=== PATIENT | male | born 1970 | race Caucasian/White ===

== ENCOUNTER 2017-02-03 09:28 | Inpatient (IN) | payer SELFPAY ==
--- NOTE | 2017-02-03 09:44 | CPEKG ---
Heart Rate: 100 RR Interval: 600 P-R Interval: 176 QRSD Interval: 98 QT Interval: 344 QTC Interval: 444 P [place]: 74 QRS [place]: 226 T Wave [place]: 241 EKG Severity - ABNORMAL ECG - EKG Impression: SINUS TACHYCARDIA EKG Impression: INTERPOLATED VENTRICULAR PREMATURE COMPLEX EKG Impression: RIGHT AXIS DEVIATION EKG Impression: PROBABLE INFERIOR INFARCT, AGE INDETERMINATE EKG Impression: CONSIDER ANTERIOR INFARCT EKG Impression: REPOL ABNRM SUGGESTS ISCHEMIA, DIFFUSE LEADS Electronically Signed By: Radha Prince 03-Feb-2017 13:13:15
[2017-02-03] MEDS ORDERED: NOREPINEPHRINE BITARTRATE 4 MG in D5W 500 ML IV ONE (09:58)
[2017-02-03] MEDS ORDERED: CEFEPIME HCL 2 GM in D5W 100 ML IV ONE (09:58)
[2017-02-03] MEDS ORDERED: NS 1,000 ML BAG *FOR SEPSIS ORDER SET ONLY IV ONE (09:58)
[2017-02-03] MEDS ORDERED: EPINEPHrine 1 MG/10 ML SYR IVP ONE ×2 (10:00→19:50)
[2017-02-03] MEDS ORDERED: SODIUM BICARBONATE 50 MEQ/50 ML SYR ONE (10:00)
[2017-02-03] MEDS ORDERED: DOPamine/DEXTROSE/250 ML BAG IV ONE (10:00)
[2017-02-03 10:07] LABS: BASE EXCESS -24.9 mEq/L (-2.5-2.5); BICARBONATE 9 mEq/L (22-26); MEASURED OXYGEN SATURATION 87 % (92-95); PCO2 63 mmHg (34-38); PO2 106 mmHg (65-75); TCO2 11 mEq/L (23-27)
[2017-02-03 10:10] LABS: END TIDAL CO2 39; O2 CONCENTRATIION 100 % (0-100); P/F RATIO 106 RATIO; PATIENT RATE 0; PRESSURE SUPPORT 7; SIMV YES
[2017-02-03 10:11] LABS: INR 1.49 (0.83-1.16)
[2017-02-03 10:12] LABS: APTT 40.5 SEC (23.0-38.0)
[2017-02-03 10:13] LABS: % IMMATURE GRANULYOCYTES 0.5 % (0.0-1.1); ABSOLUTE IMMATURE GRANULOCYTES 0.01 10^3/uL (0.00-0.10); ABSOLUTE NRBC COUNT 0.03 10^3/uL (0-0.01); ADD DIFF? NO; ADD MORPH? YES; ADD SCAN? YES; ATYPICAL LYMPHOCYTE FLAG 80 (0-99); FRAGMENT RBC FLAG 0 (0-99); HEMATOCRIT 35.3 % (40.0-51.0); HEMOGLOBIN 11.4 g/dL (13.7-17.5); LIPEMIA HEMOLYSIS FLAG 80 (0-99); MEAN CELL HEMOGLOBIN 36.4 pg (27.9-34.1); MEAN CELL HEMOGLOBIN CONCENTR. 32.3 g/dL (32.4-36.7); MEAN CELL VOLUME 112.8 fL (81.5-99.8); MEAN PLATELET VOLUME 10.1 fL (8.7-11.7); PLATELET CLUMPS FLAG 0 (0-99); PLATELET COUNT 138 10^3/uL (150-400); RED BLOOD CELL COUNT 3.13 10^6/uL (4.40-6.38)
[2017-02-03 10:14] LABS: LEFT SHIFT FLG 300 (0-99); NRBC-AUTO% 1.5 % (0.0-0.2)
[2017-02-03] MEDS ORDERED: PROPOFOL 200 MG/20 ML VIAL ONE (10:27)
--- NOTE | 2017-02-03 10:33 | EDPHY ---
H & P Time Seen by Provider: 02/03/17 09:48 HPI/ROS: CHIEF COMPLAINT: Asystole Limitations: unresponsive, hx per paramedics and a friend who was with the pt HISTORY OF PRESENT ILLNESS: 46-year-old homeless alcoholic presents with an asystole. This morning he was in the park, walked to the bathroom and then collapsed. Bystander CPR. On lens generator arrival he was in asystole. CPR was initiated and IV established. Narcan given without change. Pre-hospital blood sugar low, not given dextrose in the field yet. In route to the hospital , he regained pulses. Total down time approximately 35 minutes. No recent illness per the pt's friend, but has ongoing excessive and daily alcohol use. He took a muscle relaxer given to him by a friend yesterday ( unusual for him). No other drug use (per friend). REVIEW OF SYSTEMS: Unable to determine Past Medical/Surgical History: Alcoholism Social History: Homeless Smoking Status: Current every day smoker Physical Exam: General Appearance: Pale, unresponsive Eyes: eyes glazed, pupils fixed and dilated ENT, Mouth: Mucous membranes moist Neck: Normal inspection the anteriorly Respiratory: no respiratory effort Cardiovascular: Regular tachycardia Gastrointestinal: Abdomen is soft and nondistended Neurological: unresponsive to painful stimuli, flaccid Skin: pale Extremities: normal inspection Psychiatric: unable to determine Constitutional: Initial Vital Signs Temperature (C) 36.7 C 02/03/17 09:46 Allergies/Adverse Reactions: No Known Allergies Allergy (Unverified 08/27/13 22:23) Home Medications: Medication Instructions Recorded NK [No Known Home Meds] 09/22/15 Medical Decision Making - Diagnostics EKG Interpretation: EKG reveals sinus rhythm, diffuse T-wave inversions, T-wave elevation in V3 and AVR. Procedures: Procedure: RSI Intubation Indication for the procedure was respiratory arrest. The patient was preoxygenated with 100% oxygen by face mask. The patient was not sedated or paralyzed because he was unresponsive and flaccid. The patient was orally endotracheally intubated under direct glidescope visualization with a 7.5 ETT. Tracheal intubation was confirmed with misting on the tube; equal breath sounds bilaterally immediately after intubation; appropriate color change with [place] End Tidal CO2 detector; and appropriate capnography waveform. Oxygen saturation after intubation is 96% . Chest X-ray shows ETT in good position. The procedure was performed by myself. Procedure: Ultrasound guidance. Using the linear probe covered in a sterile sheath, a short axis of the vein was obtained. The vein was completely compressible and was identified as separate from the adjacent non-compressible arterial structure. Under real- time guidance, the introducer needle was observed up to the vein, and then punctured it. Indication: sepsis. Risks, benefits, alternatives not discussed with the patient because he was unresponsive. A timeout was observed. Full maximal sterile barrier technique was used including cap, gown, sterile gloves, large sheet, hand washing and chlorhexidine prep. The area was anesthetized with 1% lidocaine. A 7 Upper Sor[place] triple lumen was placed in the right internal jugular vein using standard Seldinger technique. There were no complications. Blood return low pressure, dark blood. Patient tolerated procedure well. CXR results: Appropriate line placement, and no pneumothorax. X-ray was interpreted by myself. Radiologist interpretation is pending. The procedure was performed by myself. ED Course/Re-evaluation: This patient presents after a witnessed cardiac arrest, now unresponsive, in a narrow complex rhythm with a pulse. He was orally intubated by la on arrival. Unable to obtain BP. 2 IVs were established. D50 1 amp IV given and Narcan 2 mg IV given without change. Dopamine initiated. He remained unresponsive, without a gag reflex. Cardiac alert was paged because of the abnormal EKG. Although the EKG did not clearly meet criteria for STEMI, he had diffuse ST/T changes. Dr. Jose Goodrich saw the patient in the emergency department. Stat echocardiogram revealed good wall motion. See nursing documentation for the resuscitation record. The patient lost pulses during his resuscitation a couple of times and CPR was resumed. He responded well to epinephrine 1 mg IV and regained blood pressures after the boluses of epinephrine. Dopamine IV initiated. Levophed was ordered, but he did not require Levophed because his blood pressure remained adequate after dopamine and the 2 IV boluses of epinephrine. Stat chest x-ray revealed a large right-sided infiltrate. At this time septic shock was identified, blood cultures drawn and he was given cefepime and Levaquin IV. A left radial arterial line was placed by Dr. Goodrich. A right internal jugular central line was placed by me. Chest x-ray after the central line placement revealed no evidence of pneumothorax and the central line in good positioning. IV fluids given per the sepsis protocol at 30 milliliters/kilogram. A Jeronimo was placed and revealed field only 10 mL of urine. Further IV fluids were given. The hospitalist service was consulted for admission. In route to the ICU, he was sent over to CT for CT scan of his head and cervical spine since he had a fall and he remains unresponsive. CT scans unremarkable. He remained flaccid and unresponsive throughout his emergency department stay, with fixed and dilated pupils. I spoke with his friend (who calls himself a brother) and informed him of the critical nature of his brothers disease. This patient utilized 60 minutes of critical care time exclusive of unbundled procedures. Differential Diagnosis: includes though not limited to acute coronary syndrome, ICH, SAH, septic shock, dysrhythmia, primary respiratory failure, hemorrhagic/neurogenic shock. - Data Points Laboratory Results: Laboratory Results 02/03/17 09:40 02/03/17 09:40 Microbiology Results: MICROBIOLOGY 02/03/17 10:23 Blood Blood Culture - Preliminary Gram Positive Cocci Chains 02/03/17 10:23 Blood Blood Panel (PCR) - Final Streptococcus Pneumoniae Medications Given: Discontinued Medications Epinephrine HCl 1 mg/ Dextrose 250 mls @ 0 mls/hr IV EDNOW ONE; Titrate PRN Reason: Protocol Stop: 02/03/17 10:01 Last Admin: 02/03/17 16:19 Dose: Not Given Cefepime HCl 2 gm/ Dextrose 100 mls @ 200 mls/hr IV EDNOW ONE PRN Reason: Protocol Stop: 02/03/17 10:27 Last Admin: 02/03/17 16:18 Dose: Not Given Dopamine HCl/Dextrose (Dopamine 1600 Mcg/Ml (Premix)) 250 mls @ 0 mls/hr IV EDNOW ONE; Titrate PRN Reason: Protocol Stop: 02/03/17 09:59 Last Admin: 02/03/17 16:19 Dose: Not Given Levofloxacin/Dextrose (Levaquin 750 Mg (Premix)) 150 mls @ 100 mls/hr IV EDNOW ONE PRN Reason: Protocol Stop: 02/03/17 11:27 Last Admin: 02/03/17 10:55 Dose: 150 mls Norepinephrine 4 mg/ Dextrose 504 mls @ 0 mls/hr IV EDNOW ONE; Titrate PRN Reason: Protocol Stop: 02/03/17 09:59 Last Admin: 02/03/17 13:07 Dose: 504 mls Azithromycin 500 mg/ Dextrose 255 mls @ 255 mls/hr IV DAILY DIAN PRN Reason: Protocol Stop: 03/06/17 08:59 Last Admin: 02/04/17 10:43 Dose: 255 mls Albumin Human (Alburx 5) 500 mls @ 0 mls/hr IV ONCE ONE PRN Reason: As Directed Stop: 02/03/17 19:45 Last Admin: 02/03/17 20:07 Dose: 500 mls Vancomycin/Sodium Chloride (Vancomycin 1 Gm (Premix)) 250 mls @ 250 mls/hr IV Q12H DIAN PRN Reason: Protocol Stop: 03/05/17 22:29 Last Admin: 02/03/17 22:13 Dose: 250 mls Calcium Gluconate 2 gm/ Sodium (Chloride) 70 mls @ 140 mls/hr IV ONCE ONE Stop: 02/04/17 09:36 Last Admin: 02/04/17 09:29 Dose: 70 mls Metoprolol Tartrate (Lopressor Injection) 5 mg IVP ONCE ONE Stop: 02/03/17 18:41 Last Admin: 02/03/17 19:29 Dose: 5 mg Sodium Bicarbonate (Sodium Bicarbonate) 50 meq IVP ONCE ONE Stop: 02/03/17 20:31 Last Admin: 02/03/17 20:30 Dose: 50 meq Sodium Bicarbonate (Sodium Bicarbonate) 50 meq IVP ONCE ONE Stop: 02/04/17 09:11 Last Admin: 02/04/17 10:42 Dose: 50 meq Sodium Chloride (Ns *For Sepsis Order Set Only*) 2,177 ml 30 ml/kg (2177 ml) IV ONCE ONE Stop: 02/03/17 09:59 Last Admin: 02/03/17 16:19 Dose: Not Given Departure - Departure Disposition: [facility] Acute Clinical Impression: Septic shock Respiratory failure Qualifiers: Chronicity: acute Respiratory failure complication: hypoxia Qualified Code(s): J96.01 - Acute respiratory failure with hypoxia Condition: Critical
[2017-02-03 10:37] LABS: ANION GAP 25 mEq/L (8-16); BILIRUBIN,TOTAL 2.1 mg/dL (0.1-1.4); CALCIUM 7.9 mg/dL (8.5-10.4); CARBON DIOXIDE 10 mEq/l (22-31); CHLORIDE 97 mEq/L (97-110); CREATININE 1.8 mg/dL (0.7-1.3); GLOMERULAR FILTRATION RATE 41; GLUCOSE 175 mg/dL (70-100); POTASSIUM 4.1 mEq/L (3.5-5.2); SODIUM 132 mEq/L (134-144)
[2017-02-03 10:56] LABS: SCAN POSITIVE
[2017-02-03 11:00] LABS: BILIRUBIN-CONJUGATED 1.2 mg/dL (0.0-0.5); BILIRUBIN-UNCONJUGATED 0.9 mg/dL (0.0-1.1)
[2017-02-03 11:08] LABS: PLATELET ESTIMATE DECREASED (ADEQ)
[2017-02-03 11:30] LABS: PLATELET ESTIMATE DECREASED (ADEQ)
[2017-02-03 11:53] LABS: LACGHOST ORDER
[2017-02-03 11:55] LABS: COLOR AMBER; LEUKOCYTE ESTERASE,URINE NEGATIVE (NEGATIVE); NITRITE,URINE NEGATIVE (NEGATIVE)
[2017-02-03 12:04] LABS: BACTERIA TRACE /hpf (NONE SEEN); MUCUS TRACE /lpf (NONE-1+); RBC,URINE 50-182 /hpf (0-3); YEAST PRESENT /hpf (NONE SEEN)
[2017-02-03 12:45] LABS: BASE EXCESS -8.5 mEq/L (-2.5-2.5); BICARBONATE 20 mEq/L (22-26); MEASURED OXYGEN SATURATION 84 % (92-95); PCO2 56 mmHg (34-38); PO2 68 mmHg (65-75); TCO2 21 mEq/L (23-27)
[2017-02-03 12:47] LABS: END TIDAL CO2 47; O2 CONCENTRATIION 90 % (0-100); P/F RATIO 76 RATIO; SIMV YES
[2017-02-03 12:48] LABS: PATIENT RATE 26; PRESSURE SUPPORT 7
[2017-02-03 12:51] LABS: MIXED VENOUS O2 SATURATION 59 % (65-75)
[2017-02-03] MEDS: NS 1,000 ML IV SCH ×2 (13:07→19:29)
--- NOTE | 2017-02-03 13:26 | CPEKG ---
Heart Rate: 132 RR Interval: 455 P-R Interval: 140 QRSD Interval: 88 QT Interval: 308 QTC Interval: 457 P [place]: 69 QRS [place]: 21 T Wave [place]: -15 EKG Severity - BORDERLINE ECG - EKG Impression: SINUS TACHYCARDIA EKG Impression: PROBABLE LEFT ATRIAL ABNORMALITY EKG Impression: BORDERLINE T ABNORMALITIES, INFERIOR LEADS EKG Impression: COMPARED WITH January, REPOL ABNORMALITIES RESOLVED Electronically Signed By: Pastora Gabriel 03-Feb-2017 15:23:34
[2017-02-03 14:25] LABS: BASE EXCESS -7.5 mEq/L (-2.5-2.5); BICARBONATE 18 mEq/L (22-26); MEASURED OXYGEN SATURATION 89 % (92-95); PCO2 40 mmHg (34-38); PO2 69 mmHg (65-75); TCO2 20 mEq/L (23-27)
[2017-02-03 14:45] LABS: MIXED VENOUS O2 SATURATION 64 % (65-75)
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
[2017-02-03] MEDS: HEPARIN 5,000 UNIT/0.5 ML SYR SC SCH ×2 (15:08→22:13)
[2017-02-03] MEDS: ACETAMINOPHEN 650 MG/20.3 ML UDCUP PO PRN ×2 (15:08→22:19)
[2017-02-03 15:14] LABS: TROPONIN I 0.099 ng/mL (0-0.034)
--- NOTE | 2017-02-03 15:38 | ECHO ---
[id number] + + [address] : : [facility] [address] : : [phone] + + Adult Echocardiographic Report + + :Name: MARY DUFF Study Date: 02/03/2017 10:49 AM : : Hospital Admission Number: [id number] : :: 1970 Gender: Male : :Age: 46 yrs Race: WH,White : :Reason For Study: Eval LV Fx : :History: Post Cardiac Arrest : + + Left Ventricle The left ventricle is normal in size and function. The left ventricular ejection fraction is normal. The left ventricular wall motion is normal. Right Ventricle The right ventricle is mildly dilated. Mitral Valve There is no mitral regurgitation noted. Tricuspid Valve No tricuspid regurgitation. Aortic Valve The aortic valve opens well. Pericardium/Pleural There is no pericardial effusion. Conclusion This is a limited echo post cardiac arrest to evaluate for cardiac activity. The left ventricle is normal in size and function. The left ventricular wall motion is normal. The right ventricle is mildly dilated. The aortic valve opens well. There is no pericardial effusion. Final Reading Physician: Franco Varner signed on 02/03/2017 03:37 PM Ordering Physician: Milton Michel Performed By: Lawson Barney, MARGARITOCS
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
[2017-02-03 16:14] LABS: MIXED VENOUS O2 SATURATION 75 % (65-75)
[2017-02-03 16:30] LABS: PHENCYCLIDINE URINE BCH < 6 ng/ml (NEGATIVE); PHENCYCLIDINE URINE BCH NEGATIVE (NEGATIVE); TETRAHYDROCANNABINOL URINE 44 ng/mL (NEGATIVE); TETRAHYDROCANNABINOL URINE NEGATIVE (NEGATIVE)
[2017-02-03 17:03] LABS: ETHANOL URINE < 10 (NEGATIVE); ETHANOL URINE NEGATIVE (NEGATIVE)
[2017-02-03] MEDS: INSULIN REGULAR HUMAN 100 UNIT/ML SC SCH ×2 (17:09→23:14)
[2017-02-03] MEDS ORDERED: METOPROLOL TARTRATE 5 MG/5 ML INJ IVP ONE (18:40)
[2017-02-03] MEDS ORDERED: ALBUMIN 5% 500 ML IV ONE (19:44)
--- NOTE | 2017-02-03 19:56 | GCON ---
[f rep st] CONSULTATION PULMONARY CRITICAL CARE CONSULTATION. DATE OF CONSULTATION: 02/03/2017 REASON FOR CONSULTATION: On hospital arrest, acute respiratory failure, pneumonia, possible anoxic brain injury, multi organ failure. HISTORY: The patient is a chronic alcoholic, drinking approximately 1/5 of hard liquor per day. His recent history is somewhat unclear. He lives out of a trailer with a friend, uses the bathrooms in [facility]. He was there today when he apparently collapsed and was found down. Bystanders initiated CPR. Paramedics arrived and found him to be asystolic. Resuscitation was continued with return of spontaneous circulation. In the emergency room, he arrested and required repeat CPR, again with return of spontaneous circulation. Chest x-ray showed a dense right-sided infiltrate. CT scan of the head and cervical spine: CT scans were negative for acute findings. EKG showed a sinus tachycardia without obvious acute changes. Cardiac echo showed the left ventricular function to be normal. No wall motion abnormalities were found. The right ventricle was mildly dilated. Valvular function appeared normal. There was no pericardial effusion. The patient was moved to the intensive care unit on the ventilator. He is unresponsive with myoclonic jerking activity. He is tachycardic and hypotensive, requiring pressor therapy. He has been febrile. PAST MEDICAL HISTORY: Largely unknown. He is a chronic alcoholic as noted above. He has no known drug allergies in the past, when here. He was apparently taking no medications. He has had pneumonia in the past, alcohol withdrawal issues, etc. All charts reveal previous normal cardiac catheterization and herniorrhaphy in the past, etc. SOCIAL HISTORY: He is homeless, lives out of his trailer, and has a friend who lives with him. He does smoke cigarettes. Does not use drugs. He drinks alcohol daily, at least a pint. Per his friend, he apparently has anxiety and bizarre behavior at times. PHYSICAL EXAMINATION: GENERAL: Reveals a gentleman who is sedated, on the ventilator, with intermittent myoclonic jerking activity that involves his upper extremities, eyes open, etc. Current blood pressure is 110/70, on low- dose Levophed. Heart rate is 125 with sinus rhythm on the monitor. Respiratory rate is 28, set on the ventilator. He is on 90% FiO2 with saturations of 100%. CVP is 6. HEENT: Endotracheal tube and NG tubes are in place. The sclera are icteric. Eyes are deviated upwards into the left. Pupils are approximately 3 mm and fixed. There may be a minor ecchymoses lateral to the right eye. There are no other signs of head trauma. CHEST: Reveals decreased breath sounds, coarse bilaterally. Rales are present on the right. There are no secretions currently. Bronchial changes are present on the right. HEART: Tachycardic. A summation gallop could not be excluded. ABDOMEN: Quiet, mildly distended. Tenderness cannot be assessed. EXTREMITIES : Unremarkable for edema, cords, or tenderness. NEUROLOGIC: Remarkable for unresponsiveness. He does not respond to noxious stimuli. Eyes open with myoclonic activity. A Jeronimo catheter is in place with initially some yellow urine output. DATABASE: Chest x-ray shows dense right-sided infiltrates. The central line was deep and has been withdrawn appropriately. A CT scan of the head and cervical spine was negative. LABORATORY: Arterial blood gas shows a pH of 7.28, pCO2 of 40 and pO2 of 69. Base excess is -7.5. Lactate is 2.9. The latest MVO2 is 75. White blood cell count is 2000, hematocrit 30. Platelets are 138,000. PT is 18, PTT 40. Sodium is 129, potassium 4.4, serum bicarbonate is 18, BUN is 32 with a creatinine of 2.0. Glucose is 283, bilirubin 2.1. Troponin is approximately 0.1. Tox screen was negative. Influenza PCR was negative. Urinalysis was positive for red blood cells, protein and blood. No white cells were present. Urine Legionella and strep antigens are pending. Sputum culture is pending. ASSESSMENT: 1. Status post out of hospital arrest with prolonged down time and several episodes of asystole requiring cardiopulmonary resuscitation with eventual return of spontaneous circulation. He is hypotensive now, but improving. Exact etiology for his arrest is unknown. There is no history of heart disease , and previous catheterization was unremarkable. Pneumonia/sepsis and primary respiratory failure could have led to his arrest. An initial arrhythmia degenerating to asystole cannot be excluded. Anoxic brain injury appears to be present as he remains comatose with significant myoclonic jerking activity. Initial CT scan of the head was negative. Supportive care will be maintained; however, prognosis is quite guarded. 2. Possible severe anoxic brain injury along with hypoperfusion injury to other organs including kidneys, liver, etc. Extent of these problems will be determined over the next 12-24 hours. 3. Right-sided pneumonia. Possibly secondary to severe aspiration at the time of his arrest versus an antecedent, community acquired pneumonia and/or aspiration event. He is being broadly covered with antibiotics. 4. History of tobacco abuse, possible chronic obstructive pulmonary disease. 5. History of heavy alcohol abuse. At risk for withdrawal; however, this will be difficult to assess in his current situation. Ativan will be given. 6. Tachycardia secondary to the arrest and associated effects. 7. Temperatures, possibly central, possibly secondary to pneumonia and/or tissue ischemia elsewhere. 8. Leukopenia and anemia secondary to chronic alcoholism versus effects of his arrest. He does have a significant shift to the left. 9. Hyponatremia. 10. At risk for acute renal failure. PLAN AND RECOMMENDATIONS: The patient will be supported in the intensive care unit on the ventilator. Intravenous fluids will be given. Neurologic status will be followed. Antibiotics will be continued. Appropriate sedation and pain control will be maintained. Pressor therapy will be continued. Subcu heparin will be given for DVT prophylaxis and famotidine for GI prophylaxis. Norepinephrine will be used to keep mean arterial pressure at 65 or greater. Dopamine will be stopped. Further plans and recommendations will be made based on his progress over the next 12-24 hours. Over 1 hour of critical care time spent directly with the patient. /[id number]/MODL [email or web address]
[2017-02-03] MEDS: FAMOTIDINE 20 MG/NACL 50 ML IV SCH (20:07)
--- NOTE | 2017-02-03 20:11 | PDINTPN ---
Plant Anatomist Progress Note Assessment/Plan: Assessment: Course 0 note: Patient was given metoprolol, 5 mg by myself intravenously for it rates of approximately 130 and adequate blood pressures. Within approximately 15 minutes heart rate slowly dropped to the 70s and and blood pressure dropped as well. He had no discernible blood pressure by art line. CPR was initiated with compressions. He was given 3 rounds of epinephrine, 1 amp of bicarb, and restarted on dopamine. Levophed was increased. A epi drip was hanging but was not needed. He had return of tachycardia at approximately 120 and return of blood pressure and pulse. Blood pressure was 180/100 post resuscitation. Compressions were given over only the about 3 minutes. The patient saturations following the rest were 100%. Repeat ABG and laboratory values are pending. He remains on dopamine and Levophed at this time. Prognosis remains extremely guarded. Plan: Aggressive supportive care, fluids, pressors and ventilatory support will be maintained. Current medications/antibiotics will be continued. Objective: Vital Signs Temp Pulse Resp BP Pulse Ox 39.0 C H 126 H 28 H 118/74 100 02/03/17 19:00 02/03/17 19:00 02/03/17 19:00 02/03/17 19:00 02/03/17 19:00 02/02/17 02/03/17 02/04/17 05:59 05:59 05:59 Intake Total 4828 Output Total 1415 Balance 3413 PT 18.0 SEC (12.0-15.0) H 02/03/17 09:40 INR 1.49 (0.83-1.16) H 02/03/17 09:40 ICD10 Worksheet Patient Problems: Problems Problem Status Onset Septic shock Acute
[2017-02-03 20:12] LABS: BASE EXCESS -15.5 mEq/L (-2.5-2.5); BICARBONATE 16 mEq/L (22-26); MEASURED OXYGEN SATURATION 83 % (92-95); PCO2 66 mmHg (34-38); PO2 73 mmHg (65-75); TCO2 18 mEq/L (23-27)
[2017-02-03 20:17] LABS: HEMATOCRIT 35.3 % (40.0-51.0); HEMOGLOBIN 11.5 g/dL (13.7-17.5); MEAN CELL HEMOGLOBIN 36.3 pg (27.9-34.1); MEAN CELL HEMOGLOBIN CONCENTR. 32.6 g/dL (32.4-36.7); MEAN CELL VOLUME 111.4 fL (81.5-99.8); RED BLOOD CELL COUNT 3.17 10^6/uL (4.40-6.38); RED CELL DISTRIBUTION WIDTH 13.1 % (11.5-15.2)
[2017-02-03] MEDS ORDERED: SODIUM BICARBONATE 50 MEQ/50 ML SYR IVP ONE (20:30)
[2017-02-03 20:41] LABS: ANION GAP 18 mEq/L (8-16); CHLORIDE 104 mEq/L (97-110); CREATININE 2.3 mg/dL (0.7-1.3); GLOMERULAR FILTRATION RATE 31; GLUCOSE 82 mg/dL (70-100); MAGNESIUM 2.1 mg/dL (1.6-2.3); POTASSIUM 4.5 mEq/L (3.5-5.2); SODIUM 139 mEq/L (134-144)
[2017-02-03] MEDS ORDERED: ERTAPENEM 1 GM in NS 100 ML IV SCH (21:00)
[2017-02-03 21:03] LABS: CALCIUM 5.8 mg/dL (8.5-10.4); CARBON DIOXIDE 17 mEq/l (22-31)
[2017-02-03 22:00] LABS: BASE EXCESS -5.5 mEq/L (-2.5-2.5); BICARBONATE 19 mEq/L (22-26); MEASURED OXYGEN SATURATION 97 % (92-95); PCO2 42 mmHg (34-38); PO2 110 mmHg (65-75); TCO2 20 mEq/L (23-27)
[2017-02-03 22:01] LABS: ASSIST CONTROL YES
[2017-02-03 22:02] LABS: END TIDAL CO2 33; O2 CONCENTRATIION 90 % (0-100); P/F RATIO 122 RATIO
[2017-02-03 22:03] LABS: TOTAL RATE 28
[2017-02-03] MEDS: NOREPINEPHRINE BITARTRATE 4 MG in D5W 500 ML IV SCH (22:13)
[2017-02-03] MEDS ORDERED: VANCOMYCIN HCL/NORMAL SALINE 250 ML IV SCH (22:30)
[2017-02-03] MEDS: LORazepam 2 MG/ML INJ IVP SCH (23:14)
[2017-02-04] MEDS: ACETAMINOPHEN 650 MG/20.3 ML UDCUP PO PRN ×4 (02:16→18:15)
[2017-02-04 03:16] LABS: ADD MORPH? NO; ADD SCAN? YES; ATYPICAL LYMPHOCYTE FLAG 0 (0-99); BASE EXCESS -6.3 mEq/L (-2.5-2.5); BICARBONATE 18 mEq/L (22-26); FRAGMENT RBC FLAG 0 (0-99); HEMATOCRIT 31.3 % (40.0-51.0); HEMOGLOBIN 10.7 g/dL (13.7-17.5); LIPEMIA HEMOLYSIS FLAG 90 (0-99); MEAN CELL HEMOGLOBIN 36.8 pg (27.9-34.1); MEAN CELL HEMOGLOBIN CONCENTR. 34.2 g/dL (32.4-36.7); MEAN CELL VOLUME 107.6 fL (81.5-99.8); MEAN PLATELET VOLUME 9.9 fL (8.7-11.7); MEASURED OXYGEN SATURATION 98 % (92-95); PCO2 34 mmHg (34-38); PLATELET CLUMPS FLAG 20 (0-99); PLATELET COUNT 74 10^3/uL (150-400); PO2 124 mmHg (65-75); RED BLOOD CELL COUNT 2.91 10^6/uL (4.40-6.38); TCO2 19 mEq/L (23-27)
[2017-02-04 03:20] LABS: ASSIST CONTROL YES
[2017-02-04 03:21] LABS: O2 CONCENTRATIION 60 % (0-100); P/F RATIO 207 RATIO; TOTAL RATE 28
[2017-02-04 03:23] LABS: IONIZED CALCIUM 0.77 MMOL/L (1.12-1.30)
[2017-02-04 03:24] LABS: INR 1.59 (0.83-1.16)
[2017-02-04 03:26] LABS: LEFT SHIFT FLG 300 (0-99)
[2017-02-04 04:23] LABS: ALANINE AMINOTRANSFERASE 335 IU/L (21-72); ALKALINE PHOSPHATASE 56 IU/L (38-126); BILIRUBIN,TOTAL 2.6 mg/dL (0.1-1.4); GLUCOSE 78 mg/dL (70-100); MAGNESIUM 1.5 mg/dL (1.6-2.3); SODIUM 139 mEq/L (134-144)
[2017-02-04 04:32] LABS: ALBUMIN 2.6 g/dL (3.5-5.0); ANION GAP 14 mEq/L (8-16); CARBON DIOXIDE 19 mEq/l (22-31); CHLORIDE 106 mEq/L (97-110); CREATININE 2.5 mg/dL (0.7-1.3); GLOMERULAR FILTRATION RATE 28; TOTAL PROTEIN 5.3 g/dL (6.3-8.2)
[2017-02-04 04:34] LABS: TROPONIN I 0.162 ng/mL (0-0.034)
[2017-02-04 04:48] LABS: BILIRUBIN-CONJUGATED 2.1 mg/dL (0.0-0.5); BILIRUBIN-UNCONJUGATED 0.5 mg/dL (0.0-1.1)
[2017-02-04 04:57] LABS: ASPARTATE AMINOTRANSFERASE 4290 IU/L (17-59)
[2017-02-04 05:01] LABS: ADD DIFF? YES; SCAN POSITIVE
[2017-02-04 05:09] LABS: PLATELET ESTIMATE DECREASED (ADEQ)
[2017-02-04] MEDS: LORazepam 2 MG/ML INJ IVP SCH ×4 (05:16→23:10)
[2017-02-04 05:17] LABS: TOXIC GRANULATION PRESENT; TOXIC VACUOLIZATION PRESENT
[2017-02-04] MEDS: HEPARIN 5,000 UNIT/0.5 ML SYR SC SCH ×3 (05:17→21:01)
[2017-02-04] MEDS: INSULIN REGULAR HUMAN 100 UNIT/ML SC SCH ×4 (05:17→23:10)
[2017-02-04] MEDS ORDERED: PROTOCOL CALCIUM 1 DOSE IV PRN (08:59)
[2017-02-04] MEDS ORDERED: AZITHROMYCIN IV 500 MG in D5W 250 ML IV SCH (09:00)
[2017-02-04] MEDS ORDERED: CALCIUM GLUCONATE 2 GM in NS 50 ML IV ONE (09:07)
[2017-02-04] MEDS ORDERED: SODIUM BICARBONATE 50 MEQ/50 ML SYR IVP ONE (09:10)
[2017-02-04] MEDS: NS 1,000 ML IV SCH ×2 (10:01→21:02)
[2017-02-04] MEDS: FAMOTIDINE 20 MG/NACL 50 ML IV SCH ×2 (11:50→20:06)
--- NOTE | 2017-02-04 12:58 | PDINTPN ---
Preparer Making Department Progress Note Assessment/Plan: Assessment: Status post out of hospital cardiopulmonary arrest. Possibly secondary to pneumococcal pneumonia/sepsis? Currently off pressors. Likely anoxic brain injury: Prognosis poor. Neurologic consultation requested. Initial CT scan of the head was within normal limits. He does have brainstem function, is over breathing the ventilator, but has no evidence of significant cortical function at this time despite being off of sedatives and narcotics. Acute renal injury secondary to 1. Making little urine at this point. Hot a candidate for dialysis in light his very poor prognosis. Increased LFTs: Secondary to shock liver. Pneumococcal pneumonia. Probably anti dated his admission. Aspiration to the right side cannot be excluded. Metabolic hypocalcemia, hypomagnesemia, etc. On replacement protocols. On DVT prophylaxis and Pepcid. Will need to adjust for renal failure. Cor status: Family requests continued care and full cor regarding cardiac issues at this time in order to allow the patient's daughter to get here from OR. Plan: Continue supportive care for now. Continue ertapenem for pneumococcus and possible aspiration. Stop azithromycin. Neurology to see. Follow lab, blood gas, chest x-ray. Full cor for now in the event of recurrent cardiac arrest, realizing that if initiated it may not be successful. Discussed with the patient's brother and ex- at length this morning. Over 1 hour of critical care time spent directly with the patient. Also discussed with nursing, RT, hospitalist, and multi disciplinary team. Subjective: Remains unresponsive, does not withdraw to stimulation, does over breathe the ventilator, off sedation. Got 1 mg of Ativan at 3:00 a.m. Objective: Vital Signs Temp Pulse Resp BP Pulse Ox 39.6 C H 116 H 28 H 133/70 H 99 02/04/17 12:00 02/04/17 12:00 02/04/17 12:00 02/04/17 12:00 02/04/17 12:00 Microbiology 02/04/17 Unknown - Final Sputum, Induced/Suctioned Laboratory Results 02/04/17 03:00 02/04/17 03:00 02/03/17 02/04/17 02/05/17 05:59 05:59 05:59 Intake Total 7763 Output Total 1720 Balance 6043 PT 19.0 SEC (12.0-15.0) H 02/04/17 03:00 INR 1.59 (0.83-1.16) H 02/04/17 03:00 Microbiology 02/03/17 10:23 Blood Blood Panel (PCR) - Final Streptococcus Pneumoniae 02/03/17 10:23 Blood Blood Culture - Preliminary 02/03/17 10:23 Blood Gram Positive Cocci Chains Laboratory Tests 02/04/17 02/04/17 02/04/17 03:00 03:00 03:00 PT 19.0 H INR 1.59 H pCO2 34 pO2 124 H ABG pH 7.34 L ABG O2 Saturation 98 H O2 Concentration % 60 Respiration Rate 28 Tidal Volume 550 PEEP 8 Calcium 5.0 L* Ionized Calcium Phosphorus 6.1 H Magnesium 1.5 L Total Bilirubin 2.6 H AST 4290 H ALT 335 H Troponin I 0.162 H Albumin 2.6 L 02/04/17 03:00 PT INR pCO2 pO2 ABG pH ABG O2 Saturation O2 Concentration % Respiration Rate Tidal Volume PEEP Calcium Ionized Calcium 0.77 L Phosphorus Magnesium Total Bilirubin AST ALT Troponin I Albumin Blood culture: Positive for strep pneumonia Chest x-ray: Pending Physical Exam - Physical Exam General Appearance: unresponsive, other (On ventilator, on no sedation) EENT: PERRL/EOMI (3 mm, fixed, eyes deviated upward to the left), ET tube, other (NG) Neck: normal inspection (No JVD) Respiratory: decreased breath sounds, rales (Right greater than left with consolidative changes), No normal breath sounds, No respiratory distress, No rhonchi Cardiac/Chest: tachycardia (Sinus) Abdomen: soft, No normal bowel sounds (Quiet) Male Genitalia: other (Jeronimo catheter is in place. Urine output diminished) Skin: warm/dry, pallor Extremities: No pedal edema Neuro/Psych: cognition abnormalities, No no motor/sensory deficits (Unresponsive , no withdrawal for me to noxious stimuli), No alert ICD10 Worksheet Patient Problems: Problems Problem Status Onset Respiratory failure Acute Septic shock Acute
[2017-02-04] MEDS ORDERED: PROTOCOL MAGNESIUM 1 DOSE IV PRN (13:07)
[2017-02-04] MEDS ORDERED: MAGNESIUM SULF 1 GM/DEXTROSE 100 ML IV ONE (13:50)
--- NOTE | 2017-02-04 18:33 | HOSPPROG ---
Hospitalist Progress Note Assessment/Plan: Assessment: 46-year-old male presents with acute coma in the setting of PEA arrest, septic shock, bacteremia, and aspiration pneumonia Plan: 1. Coma. Acute, evidenced by GCS 3 w/o purposeful withdraw from pain in extremities, acute change from his baseline, likely 2/2 anoxic brain injury - HCT w/o ICH - continue to monitor off sedation - d/w Dr. Chapman, he will evaluate patient for terminal brain tomorrow, at 48hrs from presentation 2. Septic shock. Evidenced by sepsis-2 and sepsis-3 criteria w/ tachycardia/ leukopenia/hypotension/end-organ failure (coagulopathy, LD, lactic acidosis, respiratory failure, encephalopathy), from autonomic dysregulation in setting of infxn - s/p septic shock protocol - cont on levophed - empiric Abx 3. Suspected strep pneumo pneumonia. CXR w/ right side dense infiltrate ( personally interpreted), likely source of strep bacteremia - cont on ertapenem and azithro, D#2 4. Strep bacteremia. 2/2 BCx positive, cont on renally dosed ertapenem - hold on ID consult, likely comfort measures tomorrow 5. PEA arrest. Acute, CPR initiated in field, unknown down time, HACA is not appropriate - return of circulation w/ epi/dopamine support, then had recurrent event 3/8 PM 6. Anion gap metabolic acidosis. Acute, 2/2 lactic acid in setting of above, cont to monitor w/ IVF 7. LD. 2/2 hypovolemia/hypoperfusion in setting of sepsis, suspected ATN - oliguric - cont IVF 8. Hypoglycemia. Acute, 22 on presentation, unclear if cause or effect of above , s/p glucose, monitor q6 gluc 9. Hyponatremia. Acute, 2/2 hypovolemia, cont on NS 10. Alcoholism. Chronic 11. Hypocalcemia. Severe, placed on protocol Diet. NPO PPx. High risk, hep sc and H2 Code. D/w MICHA BARKER on rounds, agrees that no CPR/DNR appropriate Dispo. ADD uncertain, critically ill Patient is high complexity, high risk of worsening morbidity and/or mortality. Secondary to the issues outlined above. Subjective: Patient with code blue 3/8 p.m. Objective: Vital Signs Temp Pulse Resp BP Pulse Ox 39.8 C H 115 H 28 H 116/61 100 02/04/17 17:00 02/04/17 17:00 02/04/17 17:00 02/04/17 17:00 02/04/17 17:00 Microbiology 02/04/17 Unknown - Final Sputum, Induced/Suctioned Laboratory Results 02/04/17 03:00 02/04/17 03:00 02/03/17 02/04/17 02/05/17 05:59 05:59 05:59 Intake Total 7763 1590 Output Total 1720 300 Balance 6043 1290 PT 19.0 SEC (12.0-15.0) H 02/04/17 03:00 INR 1.59 (0.83-1.16) H 02/04/17 03:00 - Physical Exam Constitutional: no apparent distress, not in pain, chronically ill appearing, No uncomfortable Eyes: other (Dilated pupils, fixed, sluggishly reactive to light, anicteric sclerae) Cardiovascular: tachycardia, No systolic murmur, No irregularly irregular, No edema Respiratory: reduced air movement (Right-sided), rhonchi (On inspiration right- sided), No expiratory wheeze, No bronchial breath sounds Gastrointestinal: distension (Mildly), No normoactive bowel sounds (Hypoactive) , No tenderness, No guarding Neurologic: other (Slight posturing movements unclear if he has mild response to pain in the left upper extremity, no response to pain in the right upper extremity or bilateral lower extremities), No facial droop ICD10 Worksheet Patient Problems: Problems Problem Status Onset Respiratory failure Acute Septic shock Acute
[2017-02-04] MEDS: D50W 25 GM/50 ML SYR IVP PRN ×2 (18:44→23:10)
[2017-02-04] MEDS: NOREPINEPHRINE BITARTRATE 4 MG in D5W 500 ML IV SCH (19:15)
[2017-02-04] MEDS ORDERED: ERTAPENEM 0.5 GM in NS 100 ML IV SCH (21:00)
[2017-02-05] MEDS: ACETAMINOPHEN 650 MG/20.3 ML UDCUP PO PRN ×2 (03:25→09:56)
[2017-02-05 03:31] LABS: ASSIST CONTROL YES; BASE EXCESS -6.7 mEq/L (-2.5-2.5); BICARBONATE 18 mEq/L (22-26); IONIZED CALCIUM 0.81 MMOL/L (1.12-1.30); MEASURED OXYGEN SATURATION 98 % (92-95); PCO2 37 mmHg (34-38); PO2 119 mmHg (65-75); TCO2 19 mEq/L (23-27)
[2017-02-05 03:32] LABS: END TIDAL CO2 33; O2 CONCENTRATIION 40 % (0-100); P/F RATIO 298 RATIO; TOTAL RATE 28
[2017-02-05 03:36] LABS: % IMMATURE GRANULYOCYTES 1.6 % (0.0-1.1); ABSOLUTE IMMATURE GRANULOCYTES 0.09 10^3/uL (0.00-0.10); ABSOLUTE NRBC COUNT 0.02 10^3/uL (0-0.01); ADD DIFF? NO; ADD MORPH? NO; ADD SCAN? YES; ATYPICAL LYMPHOCYTE FLAG 0 (0-99); FRAGMENT RBC FLAG 0 (0-99); HEMATOCRIT 28.9 % (40.0-51.0); HEMOGLOBIN 9.8 g/dL (13.7-17.5); LIPEMIA HEMOLYSIS FLAG 90 (0-99); MEAN CELL HEMOGLOBIN 37.1 pg (27.9-34.1); MEAN CELL HEMOGLOBIN CONCENTR. 33.9 g/dL (32.4-36.7); MEAN CELL VOLUME 109.5 fL (81.5-99.8); MEAN PLATELET VOLUME 10.2 fL (8.7-11.7); NRBC-AUTO% 0.4 % (0.0-0.2); PLATELET CLUMPS FLAG 0 (0-99); PLATELET COUNT 66 10^3/uL (150-400); RED BLOOD CELL COUNT 2.64 10^6/uL (4.40-6.38); RED CELL DISTRIBUTION WIDTH 13.4 % (11.5-15.2)
[2017-02-05 03:38] LABS: INR 1.22 (0.83-1.16); PROTIME(PATIENT) 15.4 SEC (12.0-15.0)
[2017-02-05 03:39] LABS: APTT 43.4 SEC (23.0-38.0)
[2017-02-05] MEDS ORDERED: CALCIUM GLUCONATE 2 GM in NS 50 ML IV ONE (03:46)
[2017-02-05 03:56] LABS: ALANINE AMINOTRANSFERASE 266 IU/L (21-72); ALBUMIN 2.6 g/dL (3.5-5.0); ALKALINE PHOSPHATASE 85 IU/L (38-126); ANION GAP 14 mEq/L (8-16); BILIRUBIN,TOTAL 2.7 mg/dL (0.1-1.4); CARBON DIOXIDE 19 mEq/l (22-31); CHLORIDE 106 mEq/L (97-110); CREATININE 5.2 mg/dL (0.7-1.3); GLOMERULAR FILTRATION RATE 12; GLUCOSE 64 mg/dL (70-100); MAGNESIUM 1.8 mg/dL (1.6-2.3); POTASSIUM 4.1 mEq/L (3.5-5.2); SODIUM 139 mEq/L (134-144); TOTAL PROTEIN 5.2 g/dL (6.3-8.2)
[2017-02-05 04:01] LABS: CALCIUM 5.3 mg/dL (8.5-10.4)
[2017-02-05 04:08] LABS: ASPARTATE AMINOTRANSFERASE 2084 IU/L (17-59)
[2017-02-05] MEDS ORDERED: MAGNESIUM SULF 1 GM/DEXTROSE 100 ML IV ONE (04:08)
[2017-02-05 04:22] LABS: LEFT SHIFT FLG 300 (0-99)
[2017-02-05] MEDS: D50W 25 GM/50 ML SYR IVP PRN ×4 (04:23→23:13)
[2017-02-05 04:29] LABS: BILIRUBIN-CONJUGATED 2.4 mg/dL (0.0-0.5); BILIRUBIN-UNCONJUGATED 0.3 mg/dL (0.0-1.1)
[2017-02-05] MEDS: INSULIN REGULAR HUMAN 100 UNIT/ML SC SCH ×4 (04:55→23:14)
[2017-02-05] MEDS: HEPARIN 5,000 UNIT/0.5 ML SYR SC SCH (05:05)
[2017-02-05 06:15] LABS: SCAN POSITIVE
[2017-02-05 06:22] LABS: PLATELET ESTIMATE DECREASED (ADEQ)
--- NOTE | 2017-02-05 08:03 | PDCONSULT ---
Clerical Support Note: HOSPITAL NEUROLOGY CONSULT REQUESTING: Milton Michel MD REASON: coma after cardiac arrest HPI: This is a 46-year-old gentleman with a history of alcoholism who suffered an out -of-hospital PEA cardiac arrest With prolonged down time and bystander CPR. He had return of spontaneous circulation after EMS intervention. He subsequently had another cardiac arrest and hospital. He has remained intubated and comatose since his initial encounter. He has not been on any continuous sedative infusions with only sparing intermittent pushes of lorazepam. There has been note of decorticate posturing and no purposeful movement since his admission. I have been asked to see the patient for neurologic prognostication. ROS: Unobtainable from patient ALLERGIES AND MEDS: As recorded in the EMR - reviewed and reconciled PFSH: As per the intake H&P by Dr. Michel from 02/03/17 EXAM: VS reviewed in EMR GEN: intubated, WDWN, no sedation on board GCS E1 V1T M3 MS: intubated, not sedated, eyes closed, no eye opening/response to verbal stim , eyes open to nox stim, does not follow commands CN: pupils 3mm round reactive. Sustained upgaze without any nystagmus/ocular bobbing or other eye movements. VORs absent. Corneals intact. Face symmetric about the ETT. No gag to ETT manipulation. No cough to deep suction. MOTOR: flaccid LEs. BUEs with some mild spasticity. No spontaneous movements, SENSORY: decorticate posturing with nox stim of the extremities. REFLEX: plantars mute, absent DTRs COORD/GAIT: unable to assess due to coma DATA REVIEW: Labs reviewed in EMR PERSONALLY INTERPRETED RESULTS AND DATA: CT head wo - unremarkable study - no evidence of anoxic injury IMPRESSION AND RECOMMENDATIONS: // CARDIAC ARREST WITH ROSC // COMA // ANOXIC BRAIN INJURY Patient remains comatose after 2 cardiac arrest with return of spontaneous circulation. He does have brainstem reflexes, however, he does have evidence of global cortical and cerebellar injury as evidenced by persistent coma, decorticate posturing and sustained upgaze. Overall this portends a very grave prognosis for functional neurologic recovery. We will obtain an EEG to further evaluate the degree of cortical injury. I will repeat an examination tomorrow. Hold all PRN sedatives/disinhibiting medications for EEG. Patient critically ill with coma after cardiac arrest and severe anoxic brain injury. 45 mins CC time in direct patient care activities on the floor.
[2017-02-05] MEDS: NS 1,000 ML IV SCH ×3 (09:53→19:35)
--- NOTE | 2017-02-05 11:30 | HOSPPROG ---
Hospitalist Progress Note Assessment/Plan: 46-year-old male presents with pea arrest Plan: 1. Coma. Acute, evidenced by GCS 3 likely 2/2 anoxic brain injury - HCT w/o ICH - continue to monitor off sedation - d/w Dr. Chapman, felt c/w anoxic injury w grave prognosis family discussing 2. Septic shock w strep pneumo bacteremia ivf, abx source is lungs met acidosis resolved 3. strep pneumo pneumonia: change abx to azithro 4. Strep bacteremia. 2/2 BCx positive, ceftriaxone 5. PEA arrest. Acute, CPR initiated in field, unknown down time, HACA is not appropriate - return of circulation w/ epi/dopamine support, then had recurrent event 3/8 PM 6. Anion gap metabolic acidosis. Acute, 2/2 lactic acid in setting of above, cont to monitor w/ IVF 7. LD. 2/2 anuric w rising cr given grave neurologic prognosis, HD not appropriate Subjective: case d/w dr cameron. tele: sinus tach (interp by me) Objective: Vital Signs Temp Pulse Resp BP Pulse Ox 39.3 C H 114 H 28 H 144/79 H 99 02/05/17 10:00 02/05/17 10:00 02/05/17 10:00 02/05/17 10:00 02/05/17 10:00 Microbiology 02/04/17 Unknown - Final Sputum, Induced/Suctioned Laboratory Results 02/05/17 03:15 02/05/17 03:15 02/04/17 02/05/17 02/06/17 05:59 05:59 05:59 Intake Total 7763 2823 Output Total 1720 450 Balance 6043 2373 PT 15.4 SEC (12.0-15.0) H 02/05/17 03:15 INR 1.22 (0.83-1.16) H 02/05/17 03:15 - Physical Exam Constitutional: appears nourished, other (intubated, unresponsive) Eyes: anicteric sclera Ears, Nose, Mouth, Throat: moist mucous membranes, hearing normal Cardiovascular: tachycardia Respiratory: other (rhoncorous anterolat) Gastrointestinal: normoactive bowel sounds, soft, non-tender abdomen Genitourinary: koo in urethra Skin: warm Musculoskeletal: full muscle strength Neurologic: other (unresponsive), No AAOx3, No sensation intact bilaterally ICD10 Worksheet Patient Problems: Problems Problem Status Onset Respiratory failure Acute Septic shock Acute
[2017-02-05 12:34] LABS: IONIZED CALCIUM 0.81 MMOL/L (1.12-1.30)
--- NOTE | 2017-02-05 14:01 | PDINTPN ---
Senior Maintenance Mechanic Progress Note Assessment/Plan: Assessment: Status post out of hospital cardiopulmonary arrest. Possibly secondary to pneumococcal pneumonia/sepsis? Currently off pressors. Likely anoxic brain injury: Prognosis poor. Neurologic consultation appreciated. Initial CT scan of the head was within normal limits. He does have brainstem function, is over breathing the ventilator, but has no evidence of significant cortical function at this time despite being off of sedatives and narcotics. Acute renal injury secondary to 1. BUN and creatinine rising. Making little urine. Not a candidate for dialysis in light his very poor prognosis. Increased LFTs: Secondary to shock liver, improved. Pneumococcal pneumonia. Probably anti dated his admission. Aspiration to the right side cannot be excluded. Metabolic hypocalcemia, hypomagnesemia, etc. On replacement protocols. On DVT prophylaxis and Pepcid. Will need to adjust for renal failure. Cor status: Family requests continued care and full cor regarding cardiac issues at this time in order to allow the patient's daughter to get here from OR. Plan: Continue supportive care for now. Continue ertapenem for pneumococcus and possible aspiration. Stop azithromycin. Neurology to follow, a EEG requested. Follow lab, blood gas, chest x-ray as indicated. Full cor for now in the event of recurrent cardiac arrest, realizing that if initiated it may not be successful. Discussed with the patient's brother and ex-. 45 minutes of critical care time spent directly with the patient. Also discussed with nursing, RT, hospitalist, and multi disciplinary team. Subjective: Remains comatose/unresponsive without response to stimulation. On ventilator. Objective: Vital Signs Temp Pulse Resp BP Pulse Ox 39 C H 110 H 28 H 125/74 H 99 02/05/17 12:00 02/05/17 12:00 02/05/17 12:00 02/05/17 12:00 02/05/17 12:00 Microbiology 02/04/17 Unknown - Final Sputum, Induced/Suctioned Laboratory Results 02/05/17 03:15 02/05/17 03:15 02/04/17 02/05/17 02/06/17 05:59 05:59 05:59 Intake Total 7763 2823 Output Total 1720 450 Balance 6043 2373 PT 15.4 SEC (12.0-15.0) H 02/05/17 03:15 INR 1.22 (0.83-1.16) H 02/05/17 03:15 CXR: Improving infiltrate in the right. Lines and tubes in good position. Physical Exam - Physical Exam General Appearance: unresponsive, other (On vent) EENT: scleral icterus (R), scleral icterus (L), other (Pupils 3 mm and fixed, upward gaze) Neck: normal inspection Respiratory: decreased breath sounds, rales (Right side), No rhonchi, No wheezing Cardiac/Chest: tachycardia (Sinus) Abdomen: soft, No normal bowel sounds (Decreased) Male Genitalia: other (For Jeronimo catheter in place. Poor urine output) Skin: warm/dry, pallor Extremities: No pedal edema Neuro/Psych: cognition abnormalities (Coma, no response to stimulation. Does over breathe ventilator, occasional cough with stimulation, no gag), No no motor /sensory deficits ICD10 Worksheet Patient Problems: Problems Problem Status Onset Septic shock Acute Respiratory failure Acute
[2017-02-05] MEDS ORDERED: CALCIUM GLUCONATE 2 GM in D5W 50 ML IV ONE ×2 (14:30→17:00)
[2017-02-05] MEDS ORDERED: LORazepam 2 MG/ML INJ IVP ONE (18:30)
[2017-02-05] MEDS ORDERED: LORazepam 2 MG/ML INJ ONE (18:32)
[2017-02-05] MEDS ORDERED: FAMOTIDINE 20 MG/NACL 50 ML IV SCH (21:00)
[2017-02-06] MEDS: LORazepam 2 MG/ML INJ IVP SCH ×2 (01:08→05:29)
[2017-02-06] MEDS: D50W 25 GM/50 ML SYR IVP PRN ×2 (03:23→06:28)
[2017-02-06 04:09] LABS: ABSOLUTE NRBC COUNT 0.02 10^3/uL (0-0.01); ADD MORPH? NO; ADD SCAN? YES; ATYPICAL LYMPHOCYTE FLAG 0 (0-99); BASE EXCESS -9.9 mEq/L (-2.5-2.5); BICARBONATE 15 mEq/L (22-26); FRAGMENT RBC FLAG 0 (0-99); HEMATOCRIT 26.7 % (40.0-51.0); HEMOGLOBIN 8.8 g/dL (13.7-17.5); LIPEMIA HEMOLYSIS FLAG 80 (0-99); MEAN CELL HEMOGLOBIN 35.8 pg (27.9-34.1); MEAN CELL VOLUME 108.5 fL (81.5-99.8); MEAN PLATELET VOLUME 10.9 fL (8.7-11.7); MEASURED OXYGEN SATURATION 97 % (92-95); NRBC-AUTO% 0.2 % (0.0-0.2); PCO2 36 mmHg (34-38); PLATELET CLUMPS FLAG 0 (0-99); PLATELET COUNT 54 10^3/uL (150-400); PO2 105 mmHg (65-75); RED BLOOD CELL COUNT 2.46 10^6/uL (4.40-6.38); RED CELL DISTRIBUTION WIDTH 13.4 % (11.5-15.2); TCO2 16 mEq/L (23-27)
[2017-02-06 04:12] LABS: LEFT SHIFT FLG 300 (0-99)
[2017-02-06 04:16] LABS: ASSIST CONTROL YES; END TIDAL CO2 29; O2 CONCENTRATIION 70 % (0-100); P/F RATIO 150 RATIO; TOTAL RATE 31
[2017-02-06 04:23] LABS: IONIZED CALCIUM 0.92 MMOL/L (1.12-1.30)
[2017-02-06 04:31] LABS: ANION GAP 12 mEq/L (8-16); CARBON DIOXIDE 17 mEq/l (22-31); CHLORIDE 110 mEq/L (97-110); CREATININE 6.8 mg/dL (0.7-1.3); GLOMERULAR FILTRATION RATE 9; GLUCOSE 123 mg/dL (70-100); MAGNESIUM 2.1 mg/dL (1.6-2.3); POTASSIUM 3.9 mEq/L (3.5-5.2); SODIUM 139 mEq/L (134-144)
[2017-02-06] MEDS ORDERED: CALCIUM GLUCONATE 50 ML IV ONE (04:33)
[2017-02-06 04:44] LABS: ADD DIFF? YES; SCAN POSITIVE
[2017-02-06 04:45] LABS: CALCIUM 5.8 mg/dL (8.5-10.4)
[2017-02-06 04:49] LABS: POLYCHROMASIA 1+
[2017-02-06] MEDS: INSULIN REGULAR HUMAN 100 UNIT/ML SC SCH (05:29)
[2017-02-06] MEDS: NS 1,000 ML IV SCH (05:29)
[2017-02-06 07:34] LABS: PLATELET ESTIMATE DECREASED (ADEQ)
[2017-02-06 10:45] VITALS: BP 139/83; PULSE 98; RESP 27; TEMP 101.3; O2SAT 100
--- NOTE | 2017-02-06 11:03 | CPEEG ---
[f rep st] ELECTROENCEPHALOGRAM DATE OF STUDY: 02/05/2017 INTRODUCTION: This is a multichannel EEG using the standard international 10- 20 system of disc electrode placement. A single EKG channel is monitored for the duration of the study. This study is undertaken for the evaluation of cerebral activity in a comatose patient after cardiac arrest. There are no pertinent medications to report. The study duration is 28 minutes. DESCRIPTION OF RECORDING: There is significant myogenic artifact contaminating the recording for the duration of the study mainly in the frontotemporal derivations. However, in the posterior quadrant, there is note of a more flat tracing. At a sensitivity of 2 microvolts and high frequency filter adjusted down to 30 and 15 Hz, the posterior quadrants do not display any meaningful cerebral activity, that is, a relative flat tracing. No sleep cycling was observed. No activating measures were undertaken. The EKG demonstrated sinus tachycardia. IMPRESSION: This is a technically limited EEG due to myogenic artifact; however , there does not seem to be any meaningful cerebral activity in the posterior quadrants where myogenic artifact was not as prominent. CLINICAL CORRELATION: This is, again, a technically limited study; however, in the regions that were not severely contaminated by myogenic artifact, I do not see any meaningful cerebral activity, that is, a relatively flat tracing at a sensitivity of 2 microvolts. No focal lateralizing epileptiform discharges were noted or electrographic seizures. With the limited information at hand, this study would portend a poor prognosis for meaningful neurologic recovery. However, if a more definitive study is requested, a paralytic could be administered to resolve the myogenic artifact. /[id number]/MODL MTDD
--- NOTE | 2017-02-06 11:06 | NEUROPROG ---
Assessment: INTERVAL HISTORY: Patient remains comatose since his multiple cardiac arrests with ROSC, with his first occuring the day of admission, 02/03/17. He continues to have no purposeful movements or indication of awareness. He has not been on any continuous sedative medications, and only received sparing intermittent pushes of lorazepam. EXAM: VS reviewed in EMR GCS E1 V1T M3 MS: intubated, non sedated, eyes closed, no response to verbal stimulation, opens eyes briefly to nox stimulation. Does not follow commands. CN: pupils 3mm round reactive. No blink to threat. Eyes tonically deviated upwards. No ocular bobbing/nystagmus. No VORs. Corneals trace. Face symmetric about ETT. No gag to ETT manipulation. Coughs to deep suction. MOTOR: flaccid BLEs, some mild spasticity in BUEs. No volitional movements. SENSORY: decorticate posturing with mild stim to the extremities. REFLEX: plantars mute, absent DTRs, decorticate posturing as noted above COORD/GAIT: unable to assess DATA: Labs, imaging and physiologic studies reviewed in EMR PERSONALLY REVIEWED AND INTERPRETED STUDIES: EEG shows significant myogenic artifact, most prominent in the frontotemporal derivations. Posterior quadrants show relatively flat tracing, even at 2uV sensitivity. IMPRESSION: // COMA // CARDIAC ARRESTS WITH ROSC // ANOXIC BRAIN INJURY // SEPSIS Patient remains comatose after multiple cardiac arrest with return of spontaneous circulation. He does have brainstem reflexes, however, he does have evidence of global cortical and cerebellar injury as evidenced by persistent coma, decorticate posturing and sustained upgaze. He remains in this state on serial exams, now on day 3 post-event. EEG is contaminated with a lot of myogenic artifact, but the relatively less contaminated posterior quadrants show no meaningful cortical activity. Overall picture supports no chance of meaningful neurologic recovery. He has a severe neurologic insult that is irreversible without any chance of meaningful recovery. I discussed these findings with his brother, ex-, daughter who are present at bedside. They understand the severity of the patient's condition, and indicate the patient would not want to continue going on in this state. They wish to stop all denying/life sustaining measures and let him pass with comfort and dignity. I reassured the family that he is not feeling any discomfort or pain. They will discuss how to proceed with the ICU team and primary team. 45 mins CC time in direct patient care activities on the floor. Patient critically ill with severe anoxic brain injury after cardiac arrest and coma. Objective: Vital Signs Temp Pulse Resp BP Pulse Ox 38.5 C H 98 27 H 139/83 H 100 02/06/17 10:00 02/06/17 10:00 02/06/17 10:00 02/06/17 10:00 02/06/17 10:00 Microbiology 02/04/17 Unknown - Final Sputum, Induced/Suctioned Sputum Culture - Final Laboratory Results 02/06/17 03:55 02/06/17 03:55 02/05/17 02/06/17 02/07/17 05:59 05:59 06:59 Intake Total 2823 3820 Output Total 450 420 Balance 2373 3400 PT 15.4 SEC (12.0-15.0) H 02/05/17 03:15 INR 1.22 (0.83-1.16) H 02/05/17 03:15 Allergies/Adverse Reactions: No Known Allergies Allergy (Unverified 08/27/13 22:23)
[2017-02-06 11:10] LABS: BILIRUBIN-CONJUGATED 1.7 mg/dL (0.0-0.5); BILIRUBIN-UNCONJUGATED 0.3 mg/dL (0.0-1.1); TOTAL PROTEIN 4.1 g/dL (6.3-8.2)
--- NOTE | 2017-02-06 11:19 | HOSPPROG ---
Hospitalist Progress Note Assessment/Plan: 46-year-old male presents with pea arrest Plan: 1. Coma. Acute, evidenced by GCS 3 likely 2/2 anoxic brain injury HCT w/o ICH continue to monitor off sedation d/w Dr. Chapman, felt c/w anoxic injury w grave prognosis EEG supports this family discussing 2. Septic shock w strep pneumo bacteremia ivf, abx source is lungs met acidosis resolved 3. strep pneumo pneumonia: change abx to ceftriaxone 4. Strep bacteremia. 2/2 BCx positive, ceftriaxone 5. PEA arrest. Acute, CPR initiated in field, unknown down time, HACA is not appropriate - return of circulation w/ epi/dopamine support, then had recurrent event 3/8 PM 6. Anion gap metabolic acidosis. Acute, 2/2 lactic acid in setting of above, cont to monitor w/ IVF 7. LD. 2/2 anuric w rising cr given grave neurologic prognosis, HD not appropriate 8. dispo: pending family decision re: care Subjective: case d/w dr cameron. discussed end of life care w family Objective: Vital Signs Temp Pulse Resp BP Pulse Ox 38.5 C H 98 27 H 139/83 H 100 02/06/17 10:00 02/06/17 10:00 02/06/17 10:00 02/06/17 10:00 02/06/17 10:00 Microbiology 02/04/17 Unknown - Final Sputum, Induced/Suctioned Sputum Culture - Final Laboratory Results 02/06/17 03:55 02/06/17 03:55 02/05/17 02/06/17 02/07/17 05:59 05:59 06:59 Intake Total 2823 3820 Output Total 450 420 Balance 2373 3400 PT 15.4 SEC (12.0-15.0) H 02/05/17 03:15 INR 1.22 (0.83-1.16) H 02/05/17 03:15 - Physical Exam Constitutional: no apparent distress, appears nourished Eyes: EOMI Ears, Nose, Mouth, Throat: moist mucous membranes, hearing normal Cardiovascular: regular rate and rhythym, no murmur, rub, or gallop Respiratory: no respiratory distress, no rales or rhonchi Gastrointestinal: normoactive bowel sounds, soft, non-tender abdomen Genitourinary: koo in urethra Skin: warm, normal color Musculoskeletal: full muscle strength Neurologic: weakness, No AAOx3, No sensation intact bilaterally Psychiatric: No interacting appropriately, No not anxious ICD10 Worksheet Patient Problems: Problems Problem Status Onset Respiratory failure Acute Septic shock Acute
[2017-02-06] MEDS ORDERED: LORazepam 2 MG/ML INJ IVP PRN (13:02)
[2017-02-06] MEDS ORDERED: GLYCOPYRROLATE 0.2 MG/1 ML VIAL IVP PRN (13:02)
--- NOTE | 2017-02-06 14:44 | GDS ---
[f rep st] DISCHARGE SUMMARY DATE OF : 02/06/2017. CAUSE OF : Multiorgan system failure, anoxic brain injury, Strep pneumo bacteremia. TIME OF : 2:15 p.m. Please see admission history and physical by Dr. Frantz Michel. The patient was found down, unresponsive, pulseless. Was found to have an infiltrate, Strep pneumo bacteremia. He had progressive hepatic and renal failure. He had an EEG consistent with severe ano xic brain injury. He really only had brainstem reflexes. He was posturing. He was seen by Neurolo gy, who felt he had a grave neurologic prognosis. His family was at the bedside, elected to [facility]. He subsequently thereafter. Cause of is asystole. /[id number]/MODL
--- NOTE | 2017-02-06 14:49 | PDINTPN ---
[employer]ator Progress Note Assessment/Plan: Assessment: Status post out of hospital cardiopulmonary arrest. Possibly secondary to pneumococcal pneumonia/sepsis? Currently off pressors. Anoxic brain injury: Prognosis poor. Neurologic consultation appreciated. Initial CT scan of the head was within normal limits. He does have brainstem function, is over breathing the ventilator, but has no evidence of significant cortical function at this time despite being off of sedatives and narcotics. Acute renal injury secondary to 1. BUN and creatinine rising. Making little urine. Not a candidate for dialysis in light his very poor prognosis. Increased LFTs: Secondary to shock liver, improved. Pneumococcal pneumonia. Probably anti dated his admission. Aspiration to the right side cannot be excluded. Metabolic hypocalcemia, hypomagnesemia, etc. On replacement protocols. On DVT prophylaxis and Pepcid. Will need to adjust for renal failure. Cor status: DNR Plan: Family wishes to withdraw care. Agree with this decision. Discussed with the patient's brother and his , ex- and daughter. Addendum: Following withdrawal of care the patient was without pulse and respirations approximately 10 minutes later. Pronounced . Subjective: Unresponsive, on ventilator, on no sedation Objective: Vital Signs Temp Pulse Resp BP Pulse Ox 38.5 C H 98 27 H 139/83 H 100 02/06/17 10:00 02/06/17 10:00 02/06/17 10:00 02/06/17 10:00 02/06/17 10:00 Microbiology 02/04/17 Unknown - Final Sputum, Induced/Suctioned Sputum Culture - Final Laboratory Results 02/06/17 03:55 02/06/17 03:55 02/05/17 02/06/17 02/07/17 05:59 05:59 06:59 Intake Total 2823 3820 Output Total 450 420 Balance 2373 3400 PT 15.4 SEC (12.0-15.0) H 02/05/17 03:15 INR 1.22 (0.83-1.16) H 02/05/17 03:15 Physical Exam - Physical Exam General Appearance: unresponsive (Examination and change) EENT: other (Pupils fixed, upward gaze) Neck: normal inspection Respiratory: decreased breath sounds, rales (On right side) Cardiac/Chest: regular rate, rhythm Abdomen: No normal bowel sounds Male Genitalia: other (Jeronimo in place: Little urine output) Skin: normal color, warm/dry Neuro/Psych: cognition abnormalities (Remains comatose, unresponsive stimulation ), No no motor/sensory deficits ICD10 Worksheet Patient Problems: Problems Problem Status Onset Septic shock Acute Respiratory failure Acute
== END 2017-02-06 14:55 | disposition expired | DRG 871 ==
LOC: EDUNIT# → F2N 11:26
PROVIDERS: ADMIT Internal Medicine; ATTEND Internal Medicine
PROC: 0BH17EZ Insertion of Endotracheal Airway into Trachea, Via Natural or Artificial Opening (ICD-10-PCS; principal; 2017-02-03)
PROC: 5A1945Z Respiratory Ventilation, 24-96 Consecutive Hours (ICD-10-PCS; principal; 2017-02-03)
DX: A40.3 Sepsis due to Streptococcus pneumoniae (principal); J69.0 Pneumonitis due to inhalation of food and vomit; R65.21 Severe sepsis with septic shock; G93.1 Anoxic brain damage, not elsewhere classified; E87.1 Hypo-osmolality and hyponatremia; E87.2 Acidosis; N17.9 Acute kidney failure, unspecified; I46.9 Cardiac arrest, cause unspecified; F10.20 Alcohol dependence, uncomplicated; R40.2431 Glasgow coma scale score 3-8, in the field [EMT or ambulance]; E16.2 Hypoglycemia, unspecified; E86.1 Hypovolemia; E83.51 Hypocalcemia; E83.42 Hypomagnesemia; Z59.0 Homelessness; Z72.0 Tobacco use
CPT/HCPCS: 80307; 82947-QW; 87449-90; 96365; G0480; J0171; J0456; J0610; J0692; J0696; J1265; J1335; J1956; J2704; J3370; J3475; P9041